=== PATIENT | male | born 2000 | race Hispanic/Latino ===

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

== ENCOUNTER 2019-10-07 14:26 | Emergency (ER) | payer OTHER, SELFPAY ==
[2019-10-07 15:08] LABS: #Eosinphils 0.1 thou/uL (0.0-0.7); #Lymphocytes 1.2 thou/uL (1.20-3.40); #Monocytes 0.5 thou/uL (0.11-0.59); %Basophils 0.3 % (0.0-1.0); %Eosinophils 0.9 % (0.0-10.0); %Lymphocytes 11.7 % (28.0-48.0); %Monocytes 5.2 % (0.0-4.0); %Neutrophils 81.9 % (31.0-61.0); Hemoglobin 16.5 g/dL (14.0-18.0); Mean Corpuscular HGB CONC 34.4 g/dL (32.0-36.0); Mean Platelet Volume 8.7 fL (7.4-10.4); Platelet Count 222 thou/uL (130-400); RBC Distribution Width 11.8 % (11.5-14.5); Red Blood Cell (RBC) Count 5.15 mill/uL (4.00-5.20); White Blood Cell (WBC) Count 9.8 thou/uL (4.8-10.8)
[2019-10-07 15:14] LABS: Bacteria/HPF None Seen HPF (None Seen); Bilirubin Negative (Negative); Blood, Urine Negative (Negative); Clarity Clear (Clear); Glucose, Urine (Dipstick) Normal (Negative); Leukocyte 25 Leu/uL (Negative); Nitrite Negative (Negative); Protein, Urine (Dipstick) 10 mg/dL (Neg-Trace); RBC/HPF 0-3 HPF (0-3); Squamous Epithelial None Seen HPF (0-3); Urobilinogen Normal mg/dL (Less than 2)
[2019-10-07 15:28] LABS: ALT (SGPT) 11 U/L (8-55); AST (SGOT) 14 U/L (5-34); Alkaline Phosphatase 73 U/L (50-130); Anion Gap 13 mmol/L (10-20); BUN (Urea Nitrogen) 17 mg/dL (8.9-20.6); Bilirubin, Total 0.7 mg/dL (0.2-1.2); Calc. Creatinine Clearance 0 mL/min (70-130); Calcium 9.8 mg/dL (7.8-10.44); Carbon Dioxide 26 mmol/L (22-29); Chloride 101 mmol/L (98-107); Estimated GFR-MDRD Greater than 90; Globulin 2.4 g/dL (2.4-3.5); Glucose 160 mg/dL (70-105); Lipase 15 U/L (8-78); Protein, Total 7.4 g/dL (6.0-8.3); Sodium 136 mmol/L (136-145)
[2019-10-07] MEDS ORDERED: Morphine 4 MG/ML VIAL ONE (17:37)
--- NOTE | 2019-10-07 19:05 | CT ---
CT abdomen and pelvis noncontrast HISTORY: Right flank pain. FINDINGS: Each renal collecting system, ureter, and urinary bladder are decompressed without stone ev ident. Lack of contrast limits evaluation for other abnormalities. Appendix not inflamed. Left sided inferio r vena cava below the level of the renal veins. IMPRESSION: No CT evidence of urinary tract obstruction or calcification.
== END 2019-10-07 19:58 | disposition home or self-care (01) ==
LOC: ERS 14:26
DX: R10.11 Right upper quadrant pain (principal); J45.909 Unspecified asthma, uncomplicated
CPT/HCPCS: 36415; 74176; 80053; 81003; 81015; 83690; 85025; 96374; J2270

== ENCOUNTER 2021-04-03 17:22 | Inpatient (IN) | payer OTHER, SELFPAY ==
[2021-04-03] MEDS ORDERED: Ondansetron PF 4 MG/2 ML Vial ONE (18:01)
[2021-04-03] MEDS ORDERED: Morphine 4 MG/ML VIAL ONE (18:10)
[2021-04-03 18:23] LABS: Hemoglobin 16.6 g/dL (14.0-18.0); Mean Corpuscular HGB CONC 34.6 g/dL (32.0-36.0); Mean Corpuscular Hemoglobin 31.8 pg (27.0-31.0); Mean Corpuscular Volume 91.9 fL (78.0-98.0); Mean Platelet Volume 8.9 fL (7.4-10.4); Platelet Count 237 thou/uL (130-400); RBC Distribution Width 11.5 % (11.5-14.5); Red Blood Cell (RBC) Count 5.22 mill/uL (4.70-6.10); White Blood Cell (WBC) Count 22.6 thou/uL (4.8-10.8)
[2021-04-03 18:38] LABS: ALT (SGPT) 26 U/L (8-55); AST (SGOT) 24 U/L (5-34); Albumin 5.4 g/dL (3.5-5.0); Alkaline Phosphatase 78 U/L (40-110); Anion Gap 20 mmol/L (10-20); BUN (Urea Nitrogen) 19 mg/dL (8.9-20.6); Bilirubin, Total 1.6 mg/dL (0.2-1.2); Calc. Creatinine Clearance 0 mL/min (70-130); Calcium 11.3 mg/dL (7.8-10.44); Carbon Dioxide 24 mmol/L (22-29); Chloride 102 mmol/L (98-107); Glucose 125 mg/dL (70-105); Lipase 12 U/L (8-78); Potassium 3.7 mmol/L (3.5-5.1); Protein, Total 8.4 g/dL (6.0-8.3); Sodium 142 mmol/L (136-145)
[2021-04-03 18:40] LABS: Band 38 % (5-11); Lymphocytes 9 % (21-51); MDiff Complete? YES; Monocytes 3 % (0-10); Neutrophil 45 % (42-75); Platelet Morphology Comment Appears Adequate; Polychromasia SLIGHT = 2-3 cells (100X) (0-2/hpf); Reactive Lymphocytes 5 % (0-10)
[2021-04-03 19:46] LABS: Bilirubin Negative (Negative); Blood, Urine Negative (Negative); Clarity Clear (Clear); Glucose, Urine (Dipstick) Normal (Negative); Ketone, Urine 80 mg/dL (Negative); Leukocyte Negative Leu/uL (Negative); Nitrite Negative (Negative); Protein, Urine (Dipstick) 20 mg/dL (Neg-Trace); Urobilinogen Normal mg/dL (Less than 2); pH, Urine 8.5 (5.0-9.0)
[2021-04-03] MEDS ORDERED: cefTRIAXone\\ROCEPHIN 1 GM VIAL ONE (19:46)
[2021-04-03 19:52] LABS: Specific Gravity, Urine 1.057 (1.002-1.036)
[2021-04-03] MEDS ORDERED: Fentanyl 100 MCG/2 ML VIAL ONE (19:53)
[2021-04-03] MEDS ORDERED: Guaifenesin DM 100-10/5 ML UDCUP PO PRN (19:55)
[2021-04-03] MEDS ORDERED: Acetaminophen 325 MG TAB PO PRN (19:55)
[2021-04-03] MEDS ORDERED: Loperamide HCl 2 MG CAP PO PRN (19:55)
[2021-04-03 19:58] LABS: Reticulocyte Count 2.2 % (0.5-1.5)
[2021-04-03] MEDS ORDERED: metroNIDAZOLE 500 MG/100 ML BAG ONE (20:02)
[2021-04-03] MEDS: Sodium Chloride 0.9% 1,000 ML IV SCH (21:27)
[2021-04-03] MEDS: Famotidine 20 MG TAB PO SCH (21:27)
[2021-04-03] MEDS: Morphine 4 MG/ML VIAL SLOW IVP PRN (21:28)
[2021-04-03 22:07] VITALS: BMI 26.9
[2021-04-04] MEDS: HYDROcodone/Acetaminophen 5/325 mg Tablet PO PRN ×4 (00:20→21:47)
[2021-04-04 02:31] LABS: SARS-CoV-2 NAA Rapid Test Not Detected (NotDetected)
[2021-04-04] MEDS: Morphine 4 MG/ML VIAL SLOW IVP PRN ×3 (02:36→16:10)
[2021-04-04] MEDS: Sodium Chloride 0.9% 1,000 ML IV SCH ×3 (05:44→22:32)
[2021-04-04] MEDS: metroNIDAZOLE 500 MG in Premix Bag 1 BAG IVPB SCH ×3 (05:45→22:28)
[2021-04-04 06:41] LABS: #Eosinphils 0.2 thou/uL (0.0-0.7); #Lymphocytes 1.9 thou/uL (1.20-3.40); #Monocytes 0.8 thou/uL (0.11-0.59); #Neutrophils 7.5 thou/uL (1.40-6.50); %Basophils 0.3 % (0.0-1.0); %Eosinophils 1.7 % (0.0-10.0); %Lymphocytes 18.4 % (21.0-51.0); %Neutrophils 71.5 % (42.0-75.0); Hemoglobin 14.1 g/dL (14.0-18.0); Mean Corpuscular HGB CONC 32.8 g/dL (32.0-36.0); Mean Corpuscular Hemoglobin 30.7 pg (27.0-31.0); Mean Corpuscular Volume 93.6 fL (78.0-98.0); Mean Platelet Volume 9.2 fL (7.4-10.4); Platelet Count 200 thou/uL (130-400); RBC Distribution Width 11.7 % (11.5-14.5); White Blood Cell (WBC) Count 10.5 thou/uL (4.8-10.8)
[2021-04-04 06:59] LABS: ALT (SGPT) 20 U/L (8-55); AST (SGOT) 17 U/L (5-34); Albumin 4.1 g/dL (3.5-5.0); Alkaline Phosphatase 56 U/L (40-110); Anion Gap 11 mmol/L (10-20); BUN (Urea Nitrogen) 15 mg/dL (8.9-20.6); Bilirubin, Total 1.2 mg/dL (0.2-1.2); Calc. Creatinine Clearance 132 mL/min (70-130); Calcium 8.8 mg/dL (7.8-10.44); Carbon Dioxide 25 mmol/L (22-29); Chloride 106 mmol/L (98-107); Globulin 2.1 g/dL (2.4-3.5); Glucose 99 mg/dL (70-105); Potassium 3.6 mmol/L (3.5-5.1); Protein, Total 6.2 g/dL (6.0-8.3); Sodium 138 mmol/L (136-145)
[2021-04-04] MEDS ORDERED: Magnevist 469MG/ML 20 ML VIAL ONE (09:01)
[2021-04-04] MEDS: Enoxaparin Sodium 40 MG/0.4 ML SYRINGE SC SCH (09:22)
[2021-04-04] MEDS: Famotidine 20 MG TAB PO SCH ×2 (09:22→20:50)
[2021-04-04 10:02] LABS: ALT (SGPT) 18 U/L (8-55); AST (SGOT) 18 U/L (5-34); Albumin 4.1 g/dL (3.5-5.0); Alkaline Phosphatase 56 U/L (40-110); Bilirubin, Direct 0.4 mg/dL (0.1-0.3); Bilirubin, Total 1.1 mg/dL (0.2-1.2); Protein, Total 6.2 g/dL (6.0-8.3)
[2021-04-04 10:21] LABS: HIV (1/2) Antibody/Antigen Non-Reactive (NonReactive); HIV 1/2 INDEX 0.36 S/CO (<1.00)
[2021-04-04 16:58] LABS: Amphetamine Not Detected (NotDetected); Barbiturates Screen Not Detected (NotDetected); Benzodiazepine Screen Not Detected (NotDetected); Cocaine Metabolite Screen Not Detected (NotDetected); Medtox Control Line Valid? VALID (VALID); Medtox Reader # READER 4; Methadone Not Detected (NotDetected); Methamphetamine Not Detected (NotDetected); Opiate Screen Detected (NotDetected); Oxycodone Screen Not Detected (NotDetected); Phencyclidine (PCP) Not Detected (NotDetected); THC/Cannabinoid Screen Detected (NotDetected); Tricyclic Screen Not Detected (NotDetected)
[2021-04-04] MEDS: cefTRIAXone\\ROCEPHIN 1 GM in Sodium Chloride 0.9% 100 ML IVPB SCH (20:50)
[2021-04-04] MEDS: Zolpidem Tartrate 5 MG TAB PO PRN (22:39)
[2021-04-05] MEDS: metroNIDAZOLE 500 MG in Premix Bag 1 BAG IVPB SCH ×3 (05:32→23:54)
[2021-04-05] MEDS: HYDROcodone/Acetaminophen 5/325 mg Tablet PO PRN ×4 (05:33→23:50)
[2021-04-05] MEDS: Morphine 4 MG/ML VIAL SLOW IVP PRN ×3 (08:40→22:14)
[2021-04-05] MEDS: Enoxaparin Sodium 40 MG/0.4 ML SYRINGE SC SCH (08:43)
[2021-04-05] MEDS: Famotidine 20 MG TAB PO SCH ×2 (08:43→20:50)
[2021-04-05] MEDS: Sodium Chloride 0.9% 1,000 ML IV SCH ×2 (08:46→14:34)
[2021-04-05] MEDS: Ondansetron PF 4 MG/2 ML Vial IVP PRN (09:50)
[2021-04-05] MEDS: Saccharomyces boulardii 250 MG CAP PO SCH (20:50)
[2021-04-05] MEDS: cefTRIAXone\\ROCEPHIN 1 GM in Sodium Chloride 0.9% 100 ML IVPB SCH (20:51)
[2021-04-06] MEDS: Zolpidem Tartrate 5 MG TAB PO PRN (01:39)
[2021-04-06] MEDS: Sodium Chloride 0.9% 1,000 ML IV SCH ×2 (05:11→18:31)
[2021-04-06 06:24] LABS: #Basophils 0.1 thou/uL (0.0-0.2); #Eosinphils 0.2 thou/uL (0.0-0.7); #Monocytes 0.5 thou/uL (0.11-0.59); #Neutrophils 3.5 thou/uL (1.40-6.50); %Basophils 1.2 % (0.0-1.0); %Eosinophils 2.5 % (0.0-10.0); %Monocytes 8.6 % (0.0-10.0); %Neutrophils 55.8 % (42.0-75.0); Hemoglobin 14.5 g/dL (14.0-18.0); Mean Corpuscular HGB CONC 32.8 g/dL (32.0-36.0); Mean Corpuscular Hemoglobin 30.5 pg (27.0-31.0); Platelet Count 195 thou/uL (130-400); RBC Distribution Width 11.6 % (11.5-14.5); Red Blood Cell (RBC) Count 4.76 mill/uL (4.70-6.10); White Blood Cell (WBC) Count 6.3 thou/uL (4.8-10.8)
[2021-04-06] MEDS: metroNIDAZOLE 500 MG in Premix Bag 1 BAG IVPB SCH ×2 (06:35→14:20)
[2021-04-06 06:44] LABS: ALT (SGPT) 16 U/L (8-55); AST (SGOT) 15 U/L (5-34); Albumin 4.1 g/dL (3.5-5.0); Alkaline Phosphatase 54 U/L (40-110); Anion Gap 12 mmol/L (10-20); BUN (Urea Nitrogen) 11 mg/dL (8.9-20.6); Bilirubin, Total 0.8 mg/dL (0.2-1.2); Calc. Creatinine Clearance 133 mL/min (70-130); Calcium 8.9 mg/dL (7.8-10.44); Carbon Dioxide 25 mmol/L (22-29); Chloride 105 mmol/L (98-107); Globulin 2.3 g/dL (2.4-3.5); Glucose 92 mg/dL (70-105); Potassium 3.7 mmol/L (3.5-5.1); Protein, Total 6.4 g/dL (6.0-8.3); Sodium 138 mmol/L (136-145)
[2021-04-06] MEDS: Enoxaparin Sodium 40 MG/0.4 ML SYRINGE SC SCH (08:30)
[2021-04-06] MEDS: Famotidine 20 MG TAB PO SCH ×2 (08:35→20:54)
[2021-04-06] MEDS: Ondansetron PF 4 MG/2 ML Vial IVP PRN (09:37)
[2021-04-06] MEDS: HYDROcodone/Acetaminophen 5/325 mg Tablet PO PRN ×3 (09:37→20:54)
[2021-04-06] MEDS: HYDROmorphone 0.5 MG/0.5 ML SYRINGE SLOW IVP PRN ×2 (16:15→23:58)
[2021-04-06] MEDS: Saccharomyces boulardii 250 MG CAP PO SCH (20:54)
[2021-04-06] MEDS: cefTRIAXone\\ROCEPHIN 1 GM in Sodium Chloride 0.9% 100 ML IVPB SCH (22:00)
[2021-04-07] MEDS: HYDROcodone/Acetaminophen 5/325 mg Tablet PO PRN ×4 (01:26→22:16)
[2021-04-07] MEDS: metroNIDAZOLE 500 MG in Premix Bag 1 BAG IVPB SCH (01:27)
[2021-04-07] MEDS: Sodium Chloride 0.9% 1,000 ML IV SCH ×2 (05:02→08:54)
[2021-04-07] MEDS: HYDROmorphone 0.5 MG/0.5 ML SYRINGE SLOW IVP PRN (05:27)
[2021-04-07 06:24] LABS: #Eosinphils 0.2 thou/uL (0.0-0.7); #Lymphocytes 1.9 thou/uL (1.20-3.40); #Monocytes 0.6 thou/uL (0.11-0.59); #Neutrophils 4.1 thou/uL (1.40-6.50); %Basophils 0.6 % (0.0-1.0); %Eosinophils 3.5 % (0.0-10.0); %Lymphocytes 27.8 % (21.0-51.0); %Monocytes 8.5 % (0.0-10.0); %Neutrophils 59.6 % (42.0-75.0); Hemoglobin 15.1 g/dL (14.0-18.0); Mean Corpuscular HGB CONC 33.2 g/dL (32.0-36.0); Mean Corpuscular Volume 93.3 fL (78.0-98.0); Mean Platelet Volume 8.9 fL (7.4-10.4); Platelet Count 193 thou/uL (130-400); RBC Distribution Width 11.6 % (11.5-14.5); Red Blood Cell (RBC) Count 4.86 mill/uL (4.70-6.10)
[2021-04-07 06:45] LABS: ALT (SGPT) 23 U/L (8-55); AST (SGOT) 27 U/L (5-34); Albumin 4.1 g/dL (3.5-5.0); Alkaline Phosphatase 53 U/L (40-110); Anion Gap 11 mmol/L (10-20); BUN (Urea Nitrogen) 12 mg/dL (8.9-20.6); Bilirubin, Total 0.9 mg/dL (0.2-1.2); Calc. Creatinine Clearance 148 mL/min (70-130); Calcium 8.9 mg/dL (7.8-10.44); Carbon Dioxide 22 mmol/L (22-29); Chloride 106 mmol/L (98-107); Globulin 2.1 g/dL (2.4-3.5); Glucose 96 mg/dL (70-105); Potassium 3.6 mmol/L (3.5-5.1); Protein, Total 6.2 g/dL (6.0-8.3); Sodium 135 mmol/L (136-145)
[2021-04-07] MEDS ORDERED: metroNIDAZOLE 500 MG in Premix Bag 1 BAG IVPB SCH (08:00)
[2021-04-07] MEDS: Famotidine 20 MG TAB PO SCH ×2 (08:54→20:36)
[2021-04-07] MEDS: Ondansetron ODT 4 MG TAB PO PRN (10:51)
[2021-04-07] MEDS ORDERED: cefTRIAXone\\ROCEPHIN 1 GM in Sodium Chloride 0.9% 100 ML IVPB SCH (14:00)
[2021-04-07] MEDS: metroNIDAZOLE 500 MG TAB PO SCH ×2 (14:16→20:36)
[2021-04-07] MEDS: Saccharomyces boulardii 250 MG CAP PO SCH (20:36)
[2021-04-08] MEDS: Zolpidem Tartrate 5 MG TAB PO PRN (00:06)
[2021-04-08] MEDS: Sodium Chloride 0.9% 1,000 ML IV SCH (00:08)
[2021-04-08] MEDS: Famotidine 20 MG TAB PO SCH (08:25)
[2021-04-08] MEDS: metroNIDAZOLE 500 MG TAB PO SCH (08:25)
[2021-04-08] MEDS ORDERED: cefTRIAXone\\ROCEPHIN 1 GM in Sodium Chloride 0.9% 100 ML IVPB SCH (12:00)
[2021-04-08] MEDS: Ondansetron ODT 4 MG TAB PO PRN (12:12)
[2021-04-08 13:56] VITALS: BP 133/68; TEMP 97.9
[2021-04-09 10:47] LABS: Reference Lab Name KARIUS
[2021-04-09 10:48] LABS: Ref Lab Test Ordered KARIUS
== END 2021-04-08 13:34 | disposition home or self-care (01) | DRG 871 ==
LOC: ERS 17:22 → T4-B 19:49
PROVIDERS: ADMIT Internal Medicine; ATTEND Internal Medicine
PROC: 02HV33Z Insertion of Infusion Device into Superior Vena Cava, Percutaneous Approach (ICD-10-PCS; principal; 2021-04-06)
PROC: B548ZZA Ultrasonography of Superior Vena Cava, Guidance (ICD-10-PCS; 2021-04-06)
DX: A41.9 Sepsis, unspecified organism (principal); K75.0 Abscess of liver; N17.9 Acute kidney failure, unspecified; E87.1 Hypo-osmolality and hyponatremia; Z20.822 Contact with and (suspected) exposure to COVID-19; R65.20 Severe sepsis without septic shock; N18.2 Chronic kidney disease, stage 2 (mild); J45.20 Mild intermittent asthma, uncomplicated; E83.52 Hypercalcemia; E86.0 Dehydration; Z88.5 Allergy status to narcotic agent
CPT/HCPCS: 0240U; 36415; 36569; 71046; 74177; 74183; 76705; 76770; 80053; 80306; 81003; 83615; 83690; 85025; 85046; 85652; 86140; 87040; 87389; 87635; 96365; 96367; 96375; A9579; C1751; J0696; J1170; J2270; J2405; J3010; J3490; Q0162; U0003; U0005

== ENCOUNTER 2021-05-25 15:15 | Outpatient (CLI) | payer OTHER ==
[~2021-05-25 15:15] MED LIST: Iopamidol 370 76% 100 ML VIAL ONE
== END 2021-05-25 15:16 | disposition home or self-care (01) ==
LOC: CT 15:15
PROVIDERS: ATTEND Internal Medicine Infectious Disease
DX: R94.5 Abnormal results of liver function studies (principal); A49.8 Other bacterial infections of unspecified site; K76.9 Liver disease, unspecified
CPT/HCPCS: 74170; Q9967

== ENCOUNTER 2021-11-14 13:27 | Inpatient (IN) | payer OTHER, SELFPAY ==
[~2021-11-14 13:27] MED LIST changes: -Iopamidol 370 76% 100 ML VIAL ONE; +Iopamidol-370 76% 500 ML 1 ML ONE
[2021-11-14] MEDS ORDERED: Fentanyl 100 MCG/2 ML VIAL ONE (13:58)
[2021-11-14] MEDS ORDERED: Ondansetron PF 4 MG/2 ML Vial ONE ×2 (13:58→16:43)
[2021-11-14 14:19] LABS: #Basophils 0.1 thou/uL (0.0-0.2); #Eosinphils 0.1 thou/uL (0.0-0.7); #Lymphocytes 1.5 thou/uL (1.20-3.40); #Monocytes 0.7 thou/uL (0.11-0.59); #Neutrophils 16.5 thou/uL (1.40-6.50); %Basophils 0.3 % (0.0-1.0); %Eosinophils 0.3 % (0.0-10.0); %Monocytes 3.6 % (0.0-10.0); %Neutrophils 87.8 % (42.0-75.0); Hemoglobin 17.7 g/dL (14.0-18.0); Mean Corpuscular HGB CONC 34.1 g/dL (32.0-36.0); Mean Corpuscular Hemoglobin 32.2 pg (27.0-31.0); Mean Corpuscular Volume 94.4 fL (78.0-98.0); Mean Platelet Volume 8.9 fL (7.4-10.4); Platelet Count 236 thou/uL (130-400); RBC Distribution Width 11.8 % (11.5-14.5); Red Blood Cell (RBC) Count 5.48 mill/uL (4.70-6.10); White Blood Cell (WBC) Count 18.8 thou/uL (4.8-10.8)
[2021-11-14 14:37] LABS: ALT (SGPT) 27 U/L (8-55); AST (SGOT) 22 U/L (5-34); Albumin 5.1 g/dL (3.5-5.0); Alkaline Phosphatase 77 U/L (40-110); Anion Gap 17 mmol/L (10-20); BUN (Urea Nitrogen) 17 mg/dL (8.9-20.6); Bilirubin, Total 1.2 mg/dL (0.2-1.2); Calc. Creatinine Clearance 0 mL/min (70-130); Calcium 10.2 mg/dL (7.8-10.44); Carbon Dioxide 24 mmol/L (22-29); Chloride 103 mmol/L (98-107); Globulin 2.9 g/dL (2.4-3.5); Glucose 114 mg/dL (70-105); Lipase 11 U/L (8-78); Potassium 3.6 mmol/L (3.5-5.1); Sodium 140 mmol/L (136-145)
[2021-11-14] MEDS ORDERED: Ketorolac Tromethamine 30 MG/ML VIAL ONE (14:56)
[2021-11-14] MEDS ORDERED: Promethazine HCl 25 MG/ML VIAL ONE (14:56)
[2021-11-14] MEDS ORDERED: Cefepime 2 GM VIAL ONE (15:45)
[2021-11-14] MEDS ORDERED: Vancomycin 1 GM/200 ML BAG ONE (15:45)
[2021-11-14 15:56] LABS: Phosphorus 2.2 mg/dL (2.3-4.7)
[2021-11-14] MEDS ORDERED: Ondansetron ODT 4 MG TAB PO PRN (16:03)
[2021-11-14] MEDS ORDERED: Sodium Chloride 0.9% 1,000 ML IV SCH (16:15)
[2021-11-14] MEDS ORDERED: Electrolyte Replacement Protocol 1 EACH FS SCH (16:15)
[2021-11-14] MEDS ORDERED: Potassium Phosphate 15 MMOL in Sodium Chloride 0.9% 250 ML 250 ML IVPB SCH (16:15)
[2021-11-14 16:20] LABS: Bilirubin Negative (Negative); Blood, Urine Negative (Negative); Clarity Clear (Clear); Glucose, Urine (Dipstick) Normal (Negative); Ketone, Urine 60 mg/dL (Negative); Leukocyte Negative Leu/uL (Negative); Nitrite Negative (Negative); Protein, Urine (Dipstick) Negative (Neg-Trace); Urobilinogen Normal mg/dL (Less than 2)
[2021-11-14 16:30] LABS: Amphetamine Not Detected (NotDetected); Barbiturates Screen Not Detected (NotDetected); Benzodiazepine Screen Not Detected (NotDetected); Cocaine Metabolite Screen Not Detected (NotDetected); Methadone Not Detected (NotDetected); Methamphetamine Not Detected (NotDetected); Opiate Screen Not Detected (NotDetected); Oxycodone Screen Not Detected (NotDetected); Phencyclidine (PCP) Not Detected (NotDetected); THC/Cannabinoid Screen Detected (NotDetected); Tricyclic Screen Not Detected (NotDetected)
[2021-11-14] MEDS ORDERED: Ondansetron PF 4 MG/2 ML Vial IVP SCH (16:45)
[2021-11-14 17:59] LABS: Lactic Acid 1.4 mmol/L (0.5-2.2)
[2021-11-14 18:26] LABS: SARS-CoV-2 NAA Rapid Test Not Detected (NotDetected)
[2021-11-14] MEDS: D5 0.9% NS w/ 20 mEq KCl 1,000 ML IV SCH ×2 (20:36→23:45)
[2021-11-14] MEDS: Calcium Carbonate 500 MG ChewTAB PO PRN (20:38)
[2021-11-14] MEDS: Pantoprazole 40 MG VIAL IVP SCH (20:39)
[2021-11-14] MEDS: Fentanyl 100 MCG/2 ML VIAL SLOW IVP PRN (21:59)
[2021-11-14] MEDS: Ondansetron PF 4 MG/2 ML Vial IVP PRN (22:01)
[2021-11-14 22:26] VITALS: BMI 27.8
[2021-11-14] MEDS ORDERED: Melatonin 3 MG TAB PO PRN (23:58)
[2021-11-15] MEDS ORDERED: Magnesium 2 GM/50 ML 2 GM in Premix Bag 1 BAG IVPB SCH (00:30)
[2021-11-15] MEDS: Fentanyl 100 MCG/2 ML VIAL SLOW IVP PRN (04:04)
[2021-11-15] MEDS: Ondansetron PF 4 MG/2 ML Vial IVP PRN ×2 (04:04→21:12)
[2021-11-15] MEDS: Pantoprazole 40 MG VIAL IVP SCH ×2 (04:04→19:11)
[2021-11-15 05:34] LABS: #Lymphocytes 0.8 thou/uL (1.20-3.40); #Monocytes 0.8 thou/uL (0.11-0.59); #Neutrophils 11.2 thou/uL (1.40-6.50); %Basophils 0.1 % (0.0-1.0); %Eosinophils 0.2 % (0.0-10.0); %Monocytes 6.5 % (0.0-10.0); %Neutrophils 87.3 % (42.0-75.0); Hemoglobin 15.3 g/dL (14.0-18.0); Mean Corpuscular HGB CONC 33.4 g/dL (32.0-36.0); Mean Corpuscular Hemoglobin 31.5 pg (27.0-31.0); Mean Corpuscular Volume 94.2 fL (78.0-98.0); Mean Platelet Volume 8.8 fL (7.4-10.4); Platelet Count 212 thou/uL (130-400); RBC Distribution Width 11.7 % (11.5-14.5); Red Blood Cell (RBC) Count 4.86 mill/uL (4.70-6.10); White Blood Cell (WBC) Count 12.9 thou/uL (4.8-10.8)
[2021-11-15 06:06] LABS: Phosphorus 3.4 mg/dL (2.3-4.7)
[2021-11-15 06:07] LABS: Anion Gap 12 mmol/L (10-20); BUN (Urea Nitrogen) 14 mg/dL (8.9-20.6); CRP (Inflammatory) 0.97 mg/dL (= or < 0.5); Calc. Creatinine Clearance 148 mL/min (70-130); Calcium 8.6 mg/dL (7.8-10.44); Carbon Dioxide 24 mmol/L (22-29); Chloride 104 mmol/L (98-107); Glucose 158 mg/dL (70-105); Potassium 3.8 mmol/L (3.5-5.1); Sodium 136 mmol/L (136-145)
[2021-11-15] MEDS ORDERED: FLU VACC QS2021-22(6MOS UP)/PF 60 MCG/0.5 ML SYRINGE IM ONE (09:00)
[2021-11-15] MEDS ORDERED: cefTRIAXone\\ROCEPHIN 2 GM in Sodium Chloride 0.9% 100 ML IVPB SCH (09:00)
[2021-11-15] MEDS: D5 0.9% NS w/ 20 mEq KCl 1,000 ML IV SCH ×4 (09:05→23:48)
[2021-11-15] MEDS: traMADol HCl 50 MG TAB PO PRN (13:17)
[2021-11-15] MEDS: Ketorolac Tromethamine 30 MG/ML VIAL IVP SCH (21:12)
[2021-11-15] MEDS: Calcium Carbonate 500 MG ChewTAB PO PRN (21:12)
[2021-11-16] MEDS: Ketorolac Tromethamine 30 MG/ML VIAL IVP SCH (03:20)
[2021-11-16] MEDS: Pantoprazole 40 MG VIAL IVP SCH ×2 (05:23→17:02)
[2021-11-16 06:18] LABS: #Eosinphils 0.1 thou/uL (0.0-0.7); #Lymphocytes 1.6 thou/uL (1.20-3.40); #Monocytes 0.7 thou/uL (0.11-0.59); #Neutrophils 4.8 thou/uL (1.40-6.50); %Basophils 0.3 % (0.0-1.0); %Eosinophils 1.8 % (0.0-10.0); %Lymphocytes 22.4 % (21.0-51.0); %Neutrophils 65.5 % (42.0-75.0); Hemoglobin 14.3 g/dL (14.0-18.0); Mean Corpuscular HGB CONC 33.2 g/dL (32.0-36.0); Mean Corpuscular Volume 96.4 fL (78.0-98.0); Mean Platelet Volume 8.8 fL (7.4-10.4); Platelet Count 181 thou/uL (130-400); RBC Distribution Width 11.9 % (11.5-14.5); Red Blood Cell (RBC) Count 4.48 mill/uL (4.70-6.10); White Blood Cell (WBC) Count 7.3 thou/uL (4.8-10.8)
[2021-11-16 06:33] LABS: Anion Gap 9 mmol/L (10-20); BUN (Urea Nitrogen) 12 mg/dL (8.9-20.6); Calc. Creatinine Clearance 167 mL/min (70-130); Calcium 8.6 mg/dL (7.8-10.44); Carbon Dioxide 26 mmol/L (22-29); Chloride 109 mmol/L (98-107); Glucose 110 mg/dL (70-105); Potassium 4.3 mmol/L (3.5-5.1); Sodium 140 mmol/L (136-145)
[2021-11-16] MEDS: D5 0.9% NS w/ 20 mEq KCl 1,000 ML IV SCH ×3 (08:47→20:56)
[2021-11-16] MEDS ORDERED: Midazolam HCl 2 mg/2 ml Vial IVP SCH (10:45)
[2021-11-16] MEDS ORDERED: Midazolam HCl 2 mg/2 ml Vial ONE (10:45)
[2021-11-16] MEDS ORDERED: PROPOFOL 200 MG/20 ML VIAL ONE (11:14)
[2021-11-16] MEDS: Ondansetron PF 4 MG/2 ML Vial IVP PRN (14:00)
[2021-11-16] MEDS ORDERED: HYDROmorphone 0.5 MG/0.5 ML SYRINGE SLOW IVP SCH (16:00)
[2021-11-16] MEDS: traMADol HCl 50 MG TAB PO PRN (21:50)
[2021-11-17] MEDS: D5 0.9% NS w/ 20 mEq KCl 1,000 ML IV SCH (03:50)
[2021-11-17] MEDS: Pantoprazole 40 MG VIAL IVP SCH (05:18)
[2021-11-17 05:53] LABS: #Eosinphils 0.2 thou/uL (0.0-0.7); #Monocytes 0.8 thou/uL (0.11-0.59); #Neutrophils 4.3 thou/uL (1.40-6.50); %Basophils 0.5 % (0.0-1.0); %Eosinophils 2.8 % (0.0-10.0); %Lymphocytes 27.2 % (21.0-51.0); %Monocytes 10.2 % (0.0-10.0); %Neutrophils 59.3 % (42.0-75.0); Hemoglobin 14.3 g/dL (14.0-18.0); Mean Corpuscular HGB CONC 34.4 g/dL (32.0-36.0); Mean Corpuscular Hemoglobin 32.5 pg (27.0-31.0); Mean Corpuscular Volume 94.5 fL (78.0-98.0); Mean Platelet Volume 8.5 fL (7.4-10.4); Platelet Count 170 thou/uL (130-400); RBC Distribution Width 11.6 % (11.5-14.5); Red Blood Cell (RBC) Count 4.39 mill/uL (4.70-6.10); White Blood Cell (WBC) Count 7.3 thou/uL (4.8-10.8)
[2021-11-17 06:14] LABS: Anion Gap 9 mmol/L (10-20); BUN (Urea Nitrogen) 8 mg/dL (8.9-20.6); Calc. Creatinine Clearance 159 mL/min (70-130); Calcium 8.6 mg/dL (7.8-10.44); Carbon Dioxide 26 mmol/L (22-29); Chloride 107 mmol/L (98-107); Glucose 104 mg/dL (70-105); Potassium 3.8 mmol/L (3.5-5.1); Sodium 138 mmol/L (136-145)
[2021-11-17 09:02] VITALS: BP 136/83; TEMP 97.9
== END 2021-11-17 10:36 | disposition home or self-care (01) | DRG 394 ==
LOC: ERS 13:27 → MSONC 15:41
PROVIDERS: ADMIT Internal Medicine; ATTEND Internal Medicine
PROC: 0DJ08ZZ Inspection of Upper Intestinal Tract, Via Natural or Artificial Opening Endoscopic (ICD-10-PCS; principal; 2021-11-16)
DX: R11.15 Cyclical vomiting syndrome unrelated to migraine (principal); E87.2 Acidosis; Z20.822 Contact with and (suspected) exposure to COVID-19; F12.188 Cannabis abuse with other cannabis-induced disorder; K31.89 Other diseases of stomach and duodenum; J45.909 Unspecified asthma, uncomplicated; E86.0 Dehydration; E87.6 Hypokalemia; E83.39 Other disorders of phosphorus metabolism; D72.829 Elevated white blood cell count, unspecified; Z88.5 Allergy status to narcotic agent
CPT/HCPCS: 0240U; 36415; 74177; 76705; 78226; 80048; 80053; 80306; 81003; 83605; 83690; 83735; 84100; 85025; 86140; 87040; 90471; 90686; 96365; 96367; 96375; 96376; A9537; C9113; G0008; J0692; J1170; J1885; J2250; J2405; J2550; J2704; J3010; J3370; J3475; J3480; J7050; Q9967

== ENCOUNTER 2022-01-19 14:59 | Outpatient (CLI) | payer OTHER | END 2022-01-19 15:00 | disposition home or self-care (01) | LOC: BICRAD 14:59 | PROVIDERS: ATTEND Nurse Practitioner Family | DX: R10.9 Unspecified abdominal pain (principal) | CPT/HCPCS: 74018 ==

== ENCOUNTER 2022-10-13 07:23 | Emergency (ER) | payer SELFPAY ==
[2022-10-13 08:14] LABS: #Eosinphils 0.1 thou/uL (0.0-0.7); #Lymphocytes 1.6 thou/uL (1.20-3.40); #Monocytes 1.1 thou/uL (0.11-0.59); #Neutrophils 11.3 thou/uL (1.40-6.50); %Eosinophils 0.6 % (0.0-10.0); %Lymphocytes 11.6 % (21.0-51.0); %Monocytes 8.1 % (0.0-10.0); %Neutrophils 79.8 % (42.0-75.0); Hemoglobin 15.9 g/dL (14.0-18.0); Mean Corpuscular HGB CONC 32.8 g/dL (32.0-36.0); Mean Corpuscular Hemoglobin 30.4 pg (27.0-31.0); Mean Corpuscular Volume 92.6 fl (78.0-98.0); Mean Platelet Volume 8.9 fL (7.4-10.4); Platelet Count 248 10x3/uL (130-400); RBC Distribution Width 11.6 % (11.5-14.5); Red Blood Cell (RBC) Count 5.22 mill/uL (4.70-6.10); White Blood Cell (WBC) Count 14.1 10x3/uL (4.8-10.8)
[2022-10-13] MEDS ORDERED: Promethazine HCl 25 MG in Sodium Chloride 0.9% 50 ML IVPB SCH (08:30)
[2022-10-13 08:31] LABS: ALT (SGPT) 16 U/L (8-55); AST (SGOT) 15 U/L (5-34); Albumin 4.5 g/dL (3.5-5.0); Alkaline Phosphatase 79 U/L (40-110); Anion Gap 12 mmol/L (10-20); BUN (Urea Nitrogen) 13 mg/dL (8.9-20.6); Bilirubin, Total 1.3 mg/dL (0.2-1.2); Calc. Creatinine Clearance 0 mL/min (70-130); Calcium 9.4 mg/dL (7.8-10.44); Carbon Dioxide 28 mmol/L (22-29); Chloride 101 mmol/L (98-107); Estimated GFR 99; Globulin 2.7 g/dL (2.4-3.5); Glucose 100 mg/dL (70-105); Lipase 34 U/L (8-78); Potassium 3.4 mmol/L (3.5-5.1); Protein, Total 7.2 g/dL (6.0-8.3); Sodium 138 mmol/L (136-145)
[2022-10-13 08:40] LABS: Acetaminophen Less than 10.0 mcg/mL (10.0-30.0); Alcohol Less than 10 mg/dL (Less than 10); Salicylate Less than 8.0 mg/dL (15.0-30.0)
[2022-10-13 09:10] LABS: Amphetamine Not Detected (NotDetected); Barbiturates Screen Not Detected (NotDetected); Benzodiazepine Screen Detected (NotDetected); Cocaine Metabolite Screen Not Detected (NotDetected); Methadone Not Detected (NotDetected); Methamphetamine Not Detected (NotDetected); Opiate Screen Not Detected (NotDetected); Oxycodone Screen Not Detected (NotDetected); Phencyclidine (PCP) Not Detected (NotDetected); THC/Cannabinoid Screen Detected (NotDetected); Tricyclic Screen Not Detected (NotDetected)
[2022-10-13] MEDS ORDERED: Dicyclomine 20 MG/2 ML VIAL ONE (10:05)
[2022-10-13 10:18] LABS: HBCM Index 0.05 S/CO (0-0.79); HBSAg Index 0.35 S/CO (0-0.99); Hep A IgM AB Non-Reactive (NonReactive); Hep A IgM S/CO 0.12 S/CO (0-0.79); Hep B Surf Ag Non-Reactive S/CO (NonReactive); Hep C IgG Ab Non-Reactive (NonReactive); Hep C Index 0.05 S/CO (0-0.79); Hepatitis B Core IgM Abs Non-Reactive (NonReactive)
== END 2022-10-13 10:56 | disposition home or self-care (01) ==
LOC: ERS 07:23
DX: K52.9 Noninfective gastroenteritis and colitis, unspecified (principal); L05.91 Pilonidal cyst without abscess
CPT/HCPCS: 80053; 80074; 80306; 80307; 83690; 85025; 94760; 96361; 96372; 96374; J2550

== ENCOUNTER 2024-09-13 18:43 | Emergency (ER) | payer BC ==
[2024-09-13] MEDS ORDERED: Haloperidol Lactate 5 MG/ML VIAL ONE (18:54)
[2024-09-13 19:14] LABS: #Basophils Less than 0.03 10x3/uL (0.0-0.2); #Eosinophils Less than 0.03 10x3/uL (0.0-0.7); %Basophils 0.1 % (0.0-1.0); %Eosinophils 0.1 % (0.0-10.0); %Lymphocytes 2.3 % (21.0-51.0); %Neutrophils 95.1 % (42.0-75.0); Hematocrit 47.1 % (42.0-52.0); Hemoglobin 16.1 g/dL (14.0-18.0); Mean Corpuscular HGB CONC 34.2 g/dL (32.0-36.0); Mean Corpuscular Hemoglobin 30.9 pg (27.0-31.0); Mean Corpuscular Volume 90.4 fL (78.0-98.0); Mean Platelet Volume 11.4 fL (7.4-10.4); Platelet Count 141 10x3/uL (130-400); RBC Distribution Width 12.1 % (11.5-14.5); Red Blood Cell (RBC) Count 5.21 mill/uL (4.70-6.10)
[2024-09-13 19:28] LABS: ALT (SGPT) 22 U/L (8-55); AST (SGOT) 20 U/L (5-34); Albumin 4.7 g/dL (3.5-5.0); Alkaline Phosphatase 77 U/L (40-110); Anion Gap 16 mmol/L (10-20); BUN (Urea Nitrogen) 18 mg/dL (8.9-20.6); Bilirubin, Total 1.3 mg/dL (0.2-1.2); Calc. Creatinine Clearance 0 mL/min (70-130); Calcium 9.3 mg/dL (7.8-10.44); Carbon Dioxide 21 mmol/L (22-29); Chloride 103 mmol/L (98-107); Estimated GFR 103; Globulin 2.7 g/dL (2.4-3.5); Glucose 184 mg/dL (70-105); Lipase 8 U/L (8-78); Protein, Total 7.4 g/dL (6.0-8.3); Sodium 136 mmol/L (136-145)
== END 2024-09-13 20:42 | disposition home or self-care (01) ==
LOC: ERS 18:43
DX: R11.2 Nausea with vomiting, unspecified (principal); F17.290 Nicotine dependence, other tobacco product, uncomplicated
CPT/HCPCS: 36415; 80053; 83690; 85025; 96374; J1630

== ENCOUNTER 2025-08-25 06:56 | Inpatient (IN) | payer BC ==
[2025-08-25] MEDS ORDERED: Metoclopramide HCl 10 MG (2 mL) VIAL ONE (07:13)
[2025-08-25] MEDS ORDERED: diphenhydrAMINE 50 MG/ML VIAL ONE (07:13)
[2025-08-25 07:23] LABS: #Basophils 0.03 10x3/uL (0.0-0.2); #Eosinophils Less than 0.03 10x3/uL (0.0-0.7); #Monocytes 1.15 10x3/uL (0.11-0.59); #Neutrophils 11.42 10x3/uL (1.40-6.50); %Basophils 0.2 % (0.0-1.0); %Eosinophils 0.1 % (0.0-10.0); %Lymphocytes 10.3 % (21.0-51.0); %Monocytes 8.1 % (0.0-10.0); %Neutrophils 80.9 % (42.0-75.0); Hematocrit 45.1 % (42.0-52.0); Hemoglobin 15.6 g/dL (14.0-18.0); Mean Corpuscular Hemoglobin 29.7 pg (27.0-31.0); Mean Corpuscular Volume 85.9 fL (78.0-98.0); Platelet Count 280 10x3/uL (130-400); Red Blood Cell (RBC) Count 5.25 mill/uL (4.70-6.10); White Blood Cell (WBC) Count 14.13 10x3/uL (4.8-10.8)
[2025-08-25 07:47] LABS: ALT (SGPT) 16 U/L (Less than 45); AST (SGOT) 20 U/L (11-34); Acetaminophen Less than 10 mcg/mL (Less than 10); Albumin 4.9 g/dL (3.1-4.5); Alkaline Phosphatase 72 U/L (40-110); Anion Gap 18 mmol/L (10-20); BUN (Urea Nitrogen) 18 mg/dL (8.9-20.6); Bilirubin, Total 1.1 mg/dL (0.3-1.2); Calc. Creatinine Clearance 0 mL/min (70-130); Calcium 9.6 mg/dL (7.8-10.44); Carbon Dioxide 21 mmol/L (22-29); Chloride 104 mmol/L (98-107); Globulin 2.6 g/dL (2.4-3.5); Glucose 140 mg/dL (70-105); Potassium 3.2 mmol/L (3.5-5.1); Salicylate Less than 8.0 mg/dL (Less than 8.0); Sodium 140 mmol/L (136-145)
[2025-08-25 07:53] LABS: Lipase 1186 U/L (8-78)
[2025-08-25 10:05] LABS: Bacteria/HPF None Seen HPF (None Seen); CAUTI Indications for Culture Dysuria,urgency,freq; Glucose, Urine (Dipstick) Normal (Negative); Leukocyte Negative Leu/uL (Negative); Protein, Urine (Dipstick) Negative (Neg-Trace); RBC/HPF 0-3 HPF (0-3); Specific Gravity, Urine 1.034 (1.002-1.036); WBC/HPF 0-3 HPF (0-3)
[2025-08-25 10:07] LABS: Urine Culture Reflex No No
[2025-08-25 10:14] LABS: Cocaine Metabolite Screen Negative (Negative); THC/Cannabinoid Screen PRELIM POSITIVE (Negative); Tricyclic Screen Negative (Negative)
[2025-08-25] MEDS ORDERED: Electrolyte Replacement Protocol 1 EACH FS SCH (11:45)
[2025-08-25] MEDS ORDERED: Metoclopramide HCl 10 MG (2 mL) VIAL IVP PRN (12:01)
[2025-08-25 13:09] VITALS: BMI 23.9
[2025-08-25] MEDS ORDERED: Iopamidol-370 76% 500 ML MDV (1 ML CHARGE) ONE (13:17)
[2025-08-25] MEDS: Potassium Chloride 20 MEQ in Premix 1 BAG IVPB SCH (13:26)
[2025-08-25] MEDS: Ondansetron PF 4 MG/2 ML Vial IVP PRN (16:20)
[2025-08-25] MEDS: Acetaminophen 325 MG TAB PO PRN (21:21)
[2025-08-25] MEDS: Melatonin 3 MG TAB PO PRN (21:21)
[2025-08-25] MEDS: Ketorolac Tromethamine 30 MG (1 mL) VIAL IVP PRN (23:19)
[2025-08-26] MEDS ORDERED: diphenhydrAMINE 25 MG CAP PO SCH (04:30)
[2025-08-26] MEDS ORDERED: Melatonin 3 MG TAB PO SCH (04:30)
[2025-08-26 05:48] LABS: #Basophils 0.04 10x3/uL (0.0-0.2); #Eosinophils Less than 0.03 10x3/uL (0.0-0.7); #Monocytes 0.83 10x3/uL (0.11-0.59); #Neutrophils 11.21 10x3/uL (1.40-6.50); %Basophils 0.3 % (0.0-1.0); %Eosinophils 0.1 % (0.0-10.0); %Lymphocytes 12.6 % (21.0-51.0); %Monocytes 6.0 % (0.0-10.0); %Neutrophils 80.6 % (42.0-75.0); Hematocrit 43.5 % (42.0-52.0); Hemoglobin 14.5 g/dL (14.0-18.0); Mean Corpuscular Hemoglobin 29.8 pg (27.0-31.0); Mean Corpuscular Volume 89.3 fL (78.0-98.0); Platelet Count 248 10x3/uL (130-400); Red Blood Cell (RBC) Count 4.87 mill/uL (4.70-6.10); White Blood Cell (WBC) Count 13.89 10x3/uL (4.8-10.8)
[2025-08-26 06:10] LABS: ALT (SGPT) 11 U/L (Less than 45); AST (SGOT) 21 U/L (11-34); Albumin 4.4 g/dL (3.1-4.5); Alkaline Phosphatase 61 U/L (40-110); Anion Gap 16 mmol/L (10-20); BUN (Urea Nitrogen) 15 mg/dL (8.9-20.6); Bilirubin, Total 1.2 mg/dL (0.3-1.2); Calc. Creatinine Clearance 146 mL/min (70-130); Calcium 9.1 mg/dL (7.8-10.44); Carbon Dioxide 21 mmol/L (22-29); Chloride 105 mmol/L (98-107); Globulin 2.3 g/dL (2.4-3.5); Glucose 115 mg/dL (70-105); Potassium 3.6 mmol/L (3.5-5.1); Sodium 138 mmol/L (136-145)
[2025-08-26] MEDS: Pantoprazole 40 MG VIAL IVP SCH ×2 (08:20→20:39)
[2025-08-26] MEDS ORDERED: PROPOFOL 20 ML ONE (10:39)
[2025-08-26] MEDS ORDERED: fentaNYL PF 100 MCG/2 ML SYRINGE ONE (10:39)
[2025-08-26] MEDS: diphenhydrAMINE 25 MG CAP PO SCH (22:35)
[2025-08-26] MEDS: Melatonin 3 MG TAB PO SCH (22:35)
[2025-08-27 04:00] LABS: #Basophils 0.06 10x3/uL (0.0-0.2); #Eosinophils 0.07 10x3/uL (0.0-0.7); #Monocytes 0.84 10x3/uL (0.11-0.59); #Neutrophils 9.90 10x3/uL (1.40-6.50); %Basophils 0.5 % (0.0-1.0); %Eosinophils 0.5 % (0.0-10.0); %Lymphocytes 14.5 % (21.0-51.0); %Monocytes 6.6 % (0.0-10.0); %Neutrophils 77.7 % (42.0-75.0); Hematocrit 42.4 % (42.0-52.0); Hemoglobin 14.4 g/dL (14.0-18.0); Mean Corpuscular Hemoglobin 30.0 pg (27.0-31.0); Mean Corpuscular Volume 88.3 fL (78.0-98.0); Platelet Count 226 10x3/uL (130-400); Red Blood Cell (RBC) Count 4.80 mill/uL (4.70-6.10); White Blood Cell (WBC) Count 12.75 10x3/uL (4.8-10.8)
[2025-08-27 04:17] LABS: ALT (SGPT) 25 U/L (Less than 45); AST (SGOT) 65 U/L (11-34); Albumin 4.2 g/dL (3.1-4.5); Alkaline Phosphatase 59 U/L (40-110); Anion Gap 11 mmol/L (10-20); BUN (Urea Nitrogen) 10 mg/dL (8.9-20.6); Bilirubin, Total 1.7 mg/dL (0.3-1.2); Calc. Creatinine Clearance 154 mL/min (70-130); Calcium 9.0 mg/dL (7.8-10.44); Carbon Dioxide 23 mmol/L (22-29); Chloride 107 mmol/L (98-107); Globulin 2.1 g/dL (2.4-3.5); Glucose 109 mg/dL (70-105); Lipase 29 U/L (8-78); Potassium 3.4 mmol/L (3.5-5.1); Sodium 138 mmol/L (136-145)
[2025-08-27] MEDS ORDERED: Electrolyte Replacement Protocol 1 EACH FS ONE (08:03)
[2025-08-27] MEDS: Potassium Bicarbonate/Cit Ac 20 MEQ TAB PO SCH (09:15)
[2025-08-27 10:54] VITALS: BP 143/76; TEMP 98.1
== END 2025-08-27 14:00 | disposition home or self-care (01) | DRG 440 ==
LOC: ERS 06:56 → T4-A 10:07 → OBSVTOIN 08-26 13:24
PROVIDERS: ADMIT Internal Medicine; ATTEND Internal Medicine
PROC: 0DB68ZX Excision of Stomach, Via Natural or Artificial Opening Endoscopic, Diagnostic (ICD-10-PCS; principal; 2025-08-26)
DX: K85.90 Acute pancreatitis without necrosis or infection, unspecified (principal); R11.16 Cannabis hyperemesis syndrome; Z88.5 Allergy status to narcotic agent; Z98.890 Other specified postprocedural states; E87.6 Hypokalemia; K26.9 Duodenal ulcer, unspecified as acute or chronic, without hemorrhage or perforation; E86.0 Dehydration; D72.829 Elevated white blood cell count, unspecified; K44.9 Diaphragmatic hernia without obstruction or gangrene
CPT/HCPCS: 36415; 74177; 80053; 80306; 80307; 81001; 82941; 83690; 84478; 85025; 88305; 88341; 88342; 96374; 96375; 96376; G0378; J1200; J1630; J1885; J2470; J2704; J2765; J3480; J7030; J7120; Q9967